=== PATIENT | female | born 1955 | race Hispanic/Latino ===

== ENCOUNTER 2018-11-25 13:29 | Observation (INO) | payer SELFPAY ==
[2018-11-25] MEDS ORDERED: Ondansetron PF 4 MG/2 ML Vial IVP PRN (14:23)
[2018-11-25] MEDS ORDERED: Dextrose 5% in Water 1,000 ML IV PRN (14:23)
[2018-11-25] MEDS ORDERED: Dextrose 50% Abboject 50 ML SYRINGE SLOW IVP PRN (14:23)
[2018-11-25] MEDS ORDERED: Senokot S 8.6-50 MG TAB PO PRN (14:23)
[2018-11-25] MEDS ORDERED: Bisacodyl 10 MG SUPP PR PRN (14:23)
[2018-11-25] MEDS ORDERED: Acetaminophen 325 MG TAB PO PRN (14:23)
[2018-11-25] MEDS ORDERED: HumaLOG 300 UNITS/3 ML VIAL SC PRN (14:23)
[2018-11-25] MEDS ORDERED: Guaifenesin DM 100-10/5 ML UDCUP PO PRN (14:23)
[2018-11-25] MEDS ORDERED: Sodium Chloride 0.9% 1,000 ML IV SCH (14:30)
--- NOTE | 2018-11-25 15:34 | HP ---
REASON FOR ADMISSION: Chest pain and shortness of breath. HISTORY OF PRESENTING ILLNESS: The patient gives history of being in a car going towards the [place] from [place]. On the way, they tried to take a break for breakfast. She ate her [employer] sandwich 15 minutes after she took her prednisone, which was started from Monday for Feng's palsy and lisinopril for hypertension. The patient soon started developing shortness of breath, felt like her lower lip is swollen, tongue was swollen as well and tried to keep her mouth open to take in air. She felt severe discomfort in her chest and was profusely sweating. Her left upper extremity also started feeling funny and tingling. She wanted her daughter to drive up to the nearest emergency room and the patient finally went to [facility]. She was transferred from there for higher level of care. Currently, has no chest pain. Her tongue swelling, lip swelling has all come down. Has no trouble breathing. No history of asthma. No complaints of palpitations or PND at present. No cough or expectoration or fever. PAST MEDICAL AND SURGICAL HISTORY: Right-sided Feng's palsy, which started on . She is on prednisone for the same. Hypertension diagnosed last and started taking lisinopril from Monday. Tubal ligation, hernia repair x2. CURRENT MEDICATIONS: 1. Lisinopril 10 mg daily. 2. Prednisone 60 mg p.o. daily. ALLERGIES: NO KNOWN DRUG ALLERGIES. PERSONAL HISTORY: Does not abuse alcohol or drugs. No history of smoking. FAMILY HISTORY: Mother of colon cancer at the age of 64. Father at the age of 73 years. He has had history of CVA. CODE STATUS: Full. Power of divorce attorney is her and daughter will help her dad if needed. REVIEW OF SYSTEMS: CONSTITUTIONAL: Negative for weight loss or gain, ability to conduct usual activities. SKIN: Negative for rash, itching. EYES: Negative for double vision, pain. ENT/MOUTH: Negative for nose bleeding, neck stiffness, pain, tenderness. CARDIOVASCULAR: Negative for palpitations, dyspnea on exertion, orthopnea. RESPIRATORY: Negative for shortness of breath, wheezing, cough, hemoptysis, fever or night sweats. GASTROINTESTINAL: Negative for poor appetite, abdominal pain, heartburn, nausea , vomiting, constipation, or diarrhea. GENITOURINARY: Negative for urgency, frequency, dysuria, nocturia. MUSCULOSKELETAL: Negative for pain, swelling. NEUROLOGIC/PSYCHIATRIC: Negative for anxiety, depression. ALLERGY/IMMUNOLOGIC: Negative for skin rash, bleeding tendency. PHYSICAL EXAMINATION: GENERAL: The patient is a 62-year-old female, who is currently not in any acute distress. VITAL SIGNS: Blood pressure 144/60, pulse 72 per minute, respiratory rate 18 per minute, temperature 97.2 degrees Fahrenheit, and saturating 99% on room air. NECK: Supple. No elevated JVD. HEENT: Eyes; extraocular muscles intact. Pupils are reacting to light. Oral cavity, mucous membranes are dry. No exudates or congestion. CARDIOVASCULAR SYSTEM: S1 and S2 heard. Regular rhythm. RESPIRATORY SYSTEM: Air entry 2+ bilateral. No rales or rhonchi. ABDOMEN: Soft. Bowel sounds heard. No tenderness, rigidity, or guarding. EXTREMITIES: No peripheral edema or calf tenderness. VASCULAR SYSTEM: Peripheral pulses 2+ bilateral. No ischemic ulcerations or gangrene. CENTRAL NERVOUS SYSTEM: No gross focal deficits noted. The patient is alert, awake, and oriented well. PSYCHIATRIC SYSTEM: The patient's mood is euthymic. No hallucinations or delusions. LABORATORY DATA: EKG done shows T-wave inversion from V1 to V5. She also has ST-segment depression in lead I and lead aVL. The rhythm is normal. Sinus rhythm at 63 beats per minute. White count of 11, H and H 15 and 44, platelet count 236, and MCV is 87 with 64% neutrophils. D-dimer 0.44. Electrolytes stable. BUN 19 , creatinine 0.8, and serum glucose 228. Liver enzymes within normal limits. First set of troponin is negative. BNP is 27. Albumin is 4.2. CT angio chest shows no evidence of PE. CLINICAL IMPRESSION AND PLAN: The patient will be under observation on telemetry for what appears to be allergic reaction to lisinopril with her tongue, lip, and cheek swelling, all of which has resolved at present. She also developed chest pain and has significant EKG changes. Currently, she is chest-pain free. We will follow acute coronary syndrome evidence-based protocol. She will be on full-dose aspirin, small dose of Coreg, nitroglycerin paste half-inch q.8 hourly and gentle hydration with normal saline at 70 mL per hour. We will obtain 2 more sets of cardiac enzymes. Echo with 2D Doppler for LV function and nuclear stress test. Lipid profile will be obtained in the morning. Likely, the patient is allergic to lisinopril and will not be restarted on it. We will continue her prednisone, which she has been taking for Feng's palsy, which she sustained last , but started the pill on Monday and has a total of 5-day course that has been prescribed. We will continue the same. I have given complete updates to the patient and her daughter at bedside. She will be kept n.p.o. after midnight. The patient has glucose intolerance due to high dose of steroids and we will cover her with Humalog for now. Job ID: [id number] MTDD
[2018-11-25 15:39] LABS: Troponin I Less than 0.010 ng/mL (< 0.028)
[2018-11-25 15:59] VITALS: BMI 29.2
[2018-11-25] MEDS: Carvedilol 3.125 MG TAB PO SCH (16:22)
[2018-11-25] MEDS: HumaLOG 300 UNITS/3 ML VIAL SC PRN (17:00)
[2018-11-25] MEDS: Famotidine 20 MG TAB PO SCH (20:10)
[2018-11-25] MEDS: Nitroglycerin 2% Ointment 1 INCH/1 GM Packet TOP SCH (21:02)
[2018-11-26] MEDS: Nitroglycerin 2% Ointment 1 INCH/1 GM Packet TOP SCH ×2 (04:24→13:00)
[2018-11-26 05:09] LABS: #Basophils 0.1 thou/uL (0.0-0.2); #Lymphocytes 3.6 thou/uL (1.20-3.40); #Monocytes 0.8 thou/uL (0.11-0.59); #Neutrophils 6.7 thou/uL (1.40-6.50); %Basophils 0.5 % (0.0-1.0); %Eosinophils 0.4 % (0.0-10.0); %Lymphocytes 31.9 % (21.0-51.0); %Monocytes 7.1 % (0.0-10.0); %Neutrophils 60.1 % (42.0-75.0); Hemoglobin 13.5 g/dL (12.0-16.0); Mean Corpuscular HGB CONC 32.7 g/dL (32.0-36.0); Mean Corpuscular Hemoglobin 29.7 pg (27.0-31.0); Mean Corpuscular Volume 90.9 fL (78.0-98.0); Mean Platelet Volume 7.7 fL (7.4-10.4); Platelet Count 246 thou/uL (130-400); RBC Distribution Width 11.9 % (11.5-14.5); Red Blood Cell (RBC) Count 4.56 mill/uL (4.20-5.40); White Blood Cell (WBC) Count 11.2 thou/uL (4.8-10.8)
[2018-11-26 05:20] LABS: Anion Gap 8 mmol/L (10-20); BUN (Urea Nitrogen) 20 mg/dL (9.8-20.1); Calc. Creatinine Clearance 96 mL/min (70-130); Calcium 9.3 mg/dL (7.8-10.44); Carbon Dioxide 26 mmol/L (23-31); Cardiac Risk 4.8 (Less than 4.5); Chloride 111 mmol/L (98-107); Cholesterol 195 mg/dl (< 200 Desired); Estimated GFR-MDRD 87; Glucose 125 mg/dL (80-115); HDL Cholesterol 41 mg/dL (>60 Neg Risk); LDL Cholesterol, Calculated 131 mg/dL; Potassium 3.9 mmol/L (3.5-5.1); Sodium 141 mmol/L (136-145); Triglycerides 115 mg/dL (Less than 150)
[2018-11-26] MEDS: Carvedilol 3.125 MG TAB PO SCH ×3 (08:00→16:31)
[2018-11-26] MEDS: Enoxaparin Sodium 40 MG/0.4 ML SYRINGE SC SCH (08:01)
[2018-11-26] MEDS: Aspirin 325 mg Enteric Coated Tablet PO SCH ×2 (08:01→10:37)
[2018-11-26] MEDS: predniSONE 20 MG TAB PO SCH ×2 (08:01→10:37)
[2018-11-26] MEDS: Famotidine 20 MG TAB PO SCH ×3 (08:02→20:24)
--- NOTE | 2018-11-26 10:41 | NM ---
Radionucleotide stress and rest myocardial perfusion scan with CT attenuation correction and SPECT im aging Left ventricular wall motion evaluation and ejection fraction HISTORY: chest pain. FINDINGS: Homogeneous uptake of radiotracer throughout the left ventricular myocardium. No focal perf usion defect or reversibility. Adenosine protocol. QGS analysis of gated SPECT images shows no focal wall motion abnormality. Ejection fraction calculat ed at 65%. IMPRESSION: Normal myocardial perfusion scan. Normal LVEF.
--- NOTE | 2018-11-26 13:32 | PDOC.PN ---
- Subjective Encounter Start Date: 11/26/18 Encounter Start Time: 11:00 Subjective: Reports she feels better today, no overnight events -: Stress test neg - Objective Resuscitation Status - Order Detail: 11/25/18 14:23 Resuscitation Status Routine Resuscitation Status: FULL: Full Resuscitation Vital Signs & Weight: Vital Signs (12 hours) Temp Pulse Resp BP Pulse Ox 11/26/18 11:16 97.7 F 60 18 129/60 96 11/26/18 07:26 98.0 F 58 L 16 148/70 H 96 11/26/18 03:07 98.1 F 54 L 16 131/61 96 Weight Weight 72.756 kg I&O: 11/25/18 11/26/18 11/27/18 06:59 06:59 06:59 Intake Total 1547 Output Total 475 Balance 1072 Result Diagrams: 11/26/18 04:32 11/26/18 04:32 Additional Labs: Accuchecks 11/25/18 16:49 POC Glucose 250 H Phys Exam - Physical Examination HEENT: PERRLA, moist MMs Right sided Neck: no nodes Respiratory: clear to auscultation bilateral Cardiovascular: RRR Gastrointestinal: soft, non-tender Musculoskeletal: no edema, pulses present right sided facial droop, includes eyebrows Lymphatic: no nodes Psychiatric: normal affect, A&O x 3 Skin: cap refill <2 seconds Dx/Plan (1) Chest pain Code(s): R07.9 - CHEST PAIN, UNSPECIFIED Status: Acute (2) Hypertension Code(s): I10 - ESSENTIAL (PRIMARY) HYPERTENSION Status: Acute (3) Mendoza's palsy Code(s): G51.0 - MENDOZA'S PALSY Status: Acute - Plan cont current plan of care Patient's daughter reports lisinopril started at clinic on Monday, patient -: has never had a dx of HTN. SBP in the 140's on this admission, will continu -: to monitor, will change HTN meds at [place], most likely tomorrow -: Awaiting Echo results, stress neg * . Review of Systems - Review of Systems ENT: Other (reports intermittent trouble breathing through her nose) - Medications/Allergies Allergies/Adverse Reactions: Allergies Allergy/AdvReac Type Severity Reaction Status Date / Time No Known Drug Allergies Allergy Verified 11/25/18 15:45 Medications: Current Medications Acetaminophen (Tylenol) 650 mg PO Q4H PRN PRN Reason: Headache/Fever/Mild Pain (1-3) Aspirin (Ecotrin) 325 mg PO DAILY [facility] Last Admin: 11/26/18 10:37 Dose: 325 mg Bisacodyl (Dulcolax) 10 mg CA DAILYPRN PRN PRN Reason: Constipation Carvedilol (Coreg) 3.125 mg PO BID-[facility] Last Admin: 11/26/18 16:31 Dose: 3.125 mg Dextrose/Water (Dextrose 50%) 25 gm SLOW IVP PRN PRN PRN Reason: Hypoglycemia Enoxaparin Sodium (Lovenox) 40 mg SC 0900 [facility] Last Admin: 11/26/18 08:01 Dose: Not Given Famotidine (Pepcid) 20 mg PO BID [facility] Last Admin: 11/26/18 10:37 Dose: 20 mg Glucagon (Glucagon) 1 mg IM PRN PRN PRN Reason: Hypoglycemia Guaifenesin/Dextromethorphan (Robitussin Dm) 15 ml PO Q4H PRN PRN Reason: Cough Dextrose/Water (D5w) 1,000 mls @ 0 mls/hr IV .Q0M PRN PRN Reason: Hypoglycemia Insulin Human Lispro (Humalog) 0 units SC .MILD SLIDING SCALE PRN PRN Reason: Mild Correctional Scale Last Admin: 11/26/18 16:31 Dose: 3 unit Insulin Human Lispro (Humalog) 0 units SC .BEDTIME SLIDING SC PRN PRN Reason: Bedtime Correctional Scale Nitroglycerin (Nitro-Bid 2% Ointment) 0.5 inch TOP Q8HR [facility] Last Admin: 11/26/18 13:00 Dose: Not Given Ondansetron HCl (Zofran) 4 mg IVP Q6H PRN PRN Reason: Nausea/Vomiting Prednisone (Prednisone) 60 mg PO QAM-[facility] Last Admin: 11/26/18 10:37 Dose: 60 mg Senna/Docusate Sodium (Senokot S) 2 tab PO BIDPRN PRN PRN Reason: Constipation
[2018-11-26] MEDS ORDERED: ADENOSINE 60 MG/20 ML VIAL ONE (15:00)
[2018-11-26] MEDS: HumaLOG 300 UNITS/3 ML VIAL SC PRN (16:31)
[2018-11-26 18:11] LABS: #Lymphocytes 1.4 thou/uL (1.20-3.40); #Monocytes 0.1 thou/uL (0.11-0.59); #Neutrophils 6.3 thou/uL (1.40-6.50); %Basophils 0.1 % (0.0-1.0); %Eosinophils 0.2 % (0.0-10.0); %Lymphocytes 17.4 % (21.0-51.0); %Monocytes 1.1 % (0.0-10.0); %Neutrophils 81.2 % (42.0-75.0); Hemoglobin 14.8 g/dL (12.0-16.0); Mean Corpuscular HGB CONC 33.5 g/dL (32.0-36.0); Mean Corpuscular Hemoglobin 30.5 pg (27.0-31.0); Mean Platelet Volume 7.8 fL (7.4-10.4); Platelet Count 261 thou/uL (130-400); Red Blood Cell (RBC) Count 4.86 mill/uL (4.20-5.40); White Blood Cell (WBC) Count 7.7 thou/uL (4.8-10.8)
[2018-11-26] MEDS: Polyethylene Glycol OPTH DROP 15 ML BOT EA EYE PRN (23:10)
[2018-11-27 05:48] LABS: Anion Gap 11 mmol/L (10-20); BUN (Urea Nitrogen) 18 mg/dL (9.8-20.1); Calc. Creatinine Clearance 89 mL/min (70-130); Calcium 9.2 mg/dL (7.8-10.44); Carbon Dioxide 24 mmol/L (23-31); Chloride 106 mmol/L (98-107); Estimated GFR-MDRD 78; Glucose 119 mg/dL (80-115); Potassium 3.9 mmol/L (3.5-5.1); Sodium 137 mmol/L (136-145)
[2018-11-27] MEDS: Polyethylene Glycol OPTH DROP 15 ML BOT EA EYE PRN (09:06)
[2018-11-27] MEDS: Aspirin 325 mg Enteric Coated Tablet PO SCH (09:07)
[2018-11-27] MEDS: Famotidine 20 MG TAB PO SCH (09:07)
[2018-11-27] MEDS: predniSONE 20 MG TAB PO SCH (09:07)
[2018-11-27] MEDS: Carvedilol 3.125 MG TAB PO SCH (09:07)
[2018-11-27] MEDS: Enoxaparin Sodium 40 MG/0.4 ML SYRINGE SC SCH (09:08)
[2018-11-27 12:27] VITALS: BP 120/57; TEMP 98.2
--- NOTE | 2018-11-27 23:45 | DIS ---
DATE OF ADMISSION: 11/25/2018 DATE OF DISCHARGE: 11/27/2018 CHIEF COMPLAINT: Chest pain and shortness of breath. HOSPITAL COURSE: Ms. Corral is a 62-year-old female who presented to the emergency room after she is having some difficulty with shortness of breath, lower lip and tongue swelling after she started some lisinopril on Monday. She reports that she was having some chest discomfort in her chest and profusely sweating. She was diagnosed with Feng's palsy on Monday, started on prednisone and lisinopril. Daughter reports that she has not had a previous diagnosis of high blood pressure and was not sure why she was started on blood pressure medication. She was sent to [facility] ER where she was admitted to the observation unit for further chest pain rule out, symptoms of angioedema, chest pain, shortness of breath, and Feng's palsy. The patient underwent a stress test with nuclear medicine which was a normal myocardial perfusion scan. EF 65%. The patient also had an echocardiogram done, which showed an EF of 55 to 60, E/A flow reversal noted suggestive of diastolic dysfunction, mild mitral regurg is present, mild tricuspid regurgitation, normal pulmonary artery pressure. The patient continued to improve here. Swelling on the right side of the face diminished. The patient reports shortness of breath was primarily through her nose after she started on the lisinopril and steroids. Blood pressure while she was in the hospital, systolic ranged from 148 to 122. She will be sent home on the tapered dose of prednisone that she was started on for the Feng's palsy and some HCTZ for her blood pressure. She was instructed to take her blood pressure twice a day and to write it down and take it to her primary care doctor within the next week. She is also instructed to have primary care doctor double check her glucose as it was elevated while she was on the steroids here. ALLERGIES: FAYE INHIBITOR IT CAUSED ANGIOEDEMA. MEDICATIONS: On discharge; 1. Hydrochlorothiazide 25 mg p.o. q.a.m. 2. Polyethylene glycol eye drops for the right eye several times q.i.d. 3. Prednisone which we are going to taper per family's request 40 mg p.o. q.a.m. x3; 20 mg p.o. q.a.m. x3; 10 mg p.o. daily x3; and then 5 mg p.o. daily x3. She is to follow up with her primary care doctor within 1 week. She should have blood pressure evaluated as well as blood glucose. DISPOSITION: Home. CONDITION: The patient is in stable condition. FOLLOWUP INSTRUCTIONS: Blood pressure log to take to her PCP within the next week. She will have them check her blood pressure and her fasting glucose, and A1c as well. Job ID: [id number]
== END 2018-11-27 15:33 | disposition home or self-care (01) ==
LOC: ERS 13:29 → 2SW 15:39
PROVIDERS: ADMIT Internal Medicine; ATTEND Internal Medicine
DX: R07.89 Other chest pain (principal); R06.02 Shortness of breath; G51.0 Bell's palsy; T78.3XXA Angioneurotic edema, initial encounter; I10 Essential (primary) hypertension; Z79.52 Long term (current) use of systemic steroids; Z79.899 Other long term (current) drug therapy; Z88.8 Allergy status to other drugs, medicaments and biological substances; Z98.890 Other specified postprocedural states
CPT/HCPCS: 36415; 36416; 78452; 80048; 80061; 85025; 93017; 93306; 96360; 96361; 96372; A4353; A9500; G0378; J0153; J1650; J7512